=== PATIENT | female | born 1980 | race Caucasian/White ===

== ENCOUNTER → 2017-05-20 | Outpatient (CLI) | payer BC ==
[2017-05-20 15:18] LABS: Basophils # (A) 0.1 k/uL (0-0.2); Basophils % (A) 1 %; Eosinophils # (A) 0.2 k/uL (0-0.7); Eosinophils % (A) 2 %; HCT 43.5 % (34.0-46.0); HGB 14.6 gm/dL (11.4-16.0); Lymphocytes % (A) 39 %; MCH 31.2 pg (25.0-35.0); MCHC 33.5 g/dL (31.0-37.0); MCV 93.2 fL (80.0-100.0); Mean Platelet Volume 7.9; Monocytes # (A) 0.6 k/uL (0-1.0); Monocytes % (A) 6 %; Neutrophils # (A) 5.2 k/uL (1.3-7.7); Neutrophils % (A) 51 %; Platelet Count 222 k/uL (150-450); RBC 4.67 m/uL (3.80-5.40); RDW 13.2 % (11.5-15.5); WBC 10.3 k/uL (3.8-10.6)
== END | disposition home or self-care (01) ==
LOC: LABPAT 14:47
PROVIDERS: ATTEND Obstetrics & Gynecology Obstetrics
DX: Z01.812 Encounter for preprocedural laboratory examination (principal); N92.6 Irregular menstruation, unspecified; N70.11 Chronic salpingitis; N83.209 Unspecified ovarian cyst, unspecified side
CPT/HCPCS: 36415; 85025

== ENCOUNTER 2017-06-10 07:05 | Day surgery (SDC) | payer BC ==
[2017-06-05 16:10] VITALS: BMI 28.3
[~2017-06-10 07:05] MED LIST: ACETAMINOPHEN IV (For NPO) 1,000 MG in EMPTY BAG 1 BAG IVPB ONE; DEXAMETHASONE SOD PHOSPHATE 10 MG/ML 1 ML VIAL IV ONE; LACTATED RINGERS 1,000 ML IV SCH; LIDOCAINE 1% 20 ML VIAL (10MG/ML) FOR IV START INTRADERMA PRN; MIDAZOLAM 2 MG/2 ML VIAL IV PRN; ONDANSETRON 4 MG/2 ML VIAL IVP ONE; Pre Op ABX Message 1 EACH MISC MISCELLANE ONE; SCOPOLAMINE 1.5MG/72HR PATCH TRANSDERM ONE
[2017-06-10] MEDS ORDERED: LACTATED RINGERS 1,000 ML IV ONE (07:22)
[2017-06-10] MEDS ORDERED: MIDAZOLAM 2 MG/2 ML VIAL IVP ONE (07:36)
[2017-06-10] MEDS ORDERED: ACETAMINOPHEN IV (For NPO) 1,000 MG/100 ML VIAL IVPB ONE (07:40)
[2017-06-10] MEDS ORDERED: PROPOFOL 10 MG/ML 20 ML VIAL IV ONE (08:39)
[2017-06-10] MEDS ORDERED: fentaNYL (PF) 50 MCG/ML 2 ML AMP ONE (08:39)
[2017-06-10] MEDS ORDERED: MIDAZOLAM 2 MG/2 ML VIAL ONE (08:39)
[2017-06-10] MEDS ORDERED: LIDOCAINE 1% INJ 10MG/ML (20 ML MDV) ONE (08:39)
[2017-06-10] MEDS ORDERED: KETOROLAC 30 MG/ML 1 ML VIAL ONE (08:39)
[2017-06-10] MEDS ORDERED: SUCCINYLCHOLINE CHLORIDE VIAL 200 MG/10 ML VIAL IV ONE (08:39)
[2017-06-10] MEDS ORDERED: BUPIVACAINE (PF) 0.25% 30 ML VIAL SQ ONE (09:11)
--- NOTE | 2017-06-10 09:26 | P.OP ---
Date of Procedure: 06/10/17 Preoperative Diagnosis: pelvic pain, uterine fibroid, hydrosalpinx, right fallopian tube Postoperative Diagnosis: same Procedure(s) Performed: diagnostic laparoscopy, dilation and curettage, hysteroscopy Anesthesia: LUISA Surgeon: Park Sánchez Estimated Blood Loss (ml): 10 IV fluids (ml): 400 Urine output (ml): 100 Pathology: other (Endometrial curettings) Condition: stable Disposition: PACU Indications for Procedure: Pelvic pain, hydrosalpinx versus ovarian cyst, uterine fibroids Operative Findings: Enlarged posterior uterine fibroid compressing on the rectum, small pedunculated fundal fibroids, right hydrosalpinx simple in nature mobile uterus normal upper abdomen was appreciated Description of Procedure: Patient was seen in the preoperative area and informed consent was obtained risks were reviewed including but not limited to infection, bleeding, damage to bladder, bowel, ureter patient stated understanding and consent was obtained. Next Patient was taken to the operating room where general anesthesia was obtained without difficulty by the anesthesia department she was then prepped and draped in the normal sterile fashion in the dorsal lithotomy position. Weighted speculumthe posterior vaginal vault the anterior lip of the cervix is visualized and grasped with single-tooth tenaculum and acorn uterine manipulator was advanced into the endocervical canal as a means to miniplate the uterus throughout the procedure. Prior to this a red rubber catheter was used to drain approximately 100 mL of clear yellow urine from the bladder. Attention was then turned to the abdomen where the umbilical fold small incision was made through this incision the Veress needle was placed once a very stable was deemed to be in the appropriate position with the drop of CO2 pressure with insufflation of CO2 gas CO2 insufflation was allowed to occur. Approximately 3 L of CO2 gas were used to obtain pneumoperitoneum. At this point the scope was placed in the trocar toward the pneumoperitoneum. On inspection the patient's pelvis the above-noted findings were visualized and additional port site was placed for visualization in the right lower quadrant was a 5 mm port placed under direct visualization. Multiple pictures were taken. All instruments were then removed from the patient's abdomen and the skin incisions were closed with 4-0 Vicryl in a subcuticular fashion. Steri- Strips and sterile dressings were applied as needed. Next Attention then turned to the patient's vaginal vault acorn uterine manipulator was removed without difficulty and the endocervical canal was then dilated to 15 -Hungarian. The hysteroscope was then placed through the cervix and toward the endometrial cavity on inspection of the patient's and medial cavity and normal proliferative cavity was noted. Sharp curettage was then performed to obtain a tissue sample. This was then sent off to pathology for analysis. The single- tooth tenaculum was then removed from the anterior lip of the cervix hemostasis was appreciated in all instruments were then removed from the patient's vaginal vault. Next Patient tolerated procedure well ARE correct 2 patient was taken the recovery room awake and in stable condition.
[2017-06-10 09:41] VITALS: RESP 16; TEMP 97.8
[2017-06-10] MEDS: fentaNYL (PF) 50 MCG/ML 2 ML AMP IV ONE ×2 (10:00→10:10)
[2017-06-10 11:01] VITALS: BP 106/67; PULSE 76
== END 2017-06-10 11:32 | disposition home or self-care (01) ==
LOC: OR 07:05
PROVIDERS: ATTEND Obstetrics & Gynecology Obstetrics
DX: D25.9 Leiomyoma of uterus, unspecified (principal); N70.11 Chronic salpingitis; N94.6 Dysmenorrhea, unspecified; F17.210 Nicotine dependence, cigarettes, uncomplicated; Z88.5 Allergy status to narcotic agent; Q07.00 Arnold-Chiari syndrome without spina bifida or hydrocephalus; F41.9 Anxiety disorder, unspecified; Z79.891 Long term (current) use of opiate analgesic; Z79.899 Other long term (current) drug therapy
CPT/HCPCS: 81025; 88305; 49320; 58558; J2250; J0330; J1100; J2405; J2001; J3010; J1885; J0131; J2704